=== PATIENT | male | born 1950 | race Caucasian/White ===

== ENCOUNTER 2018-11-14 05:29 | Observation (INO) | payer MEDICARE ==
[2018-11-08 12:39] LABS: BASOPHILS % 0.6 % (0.0-1.0); EOSINOPHILS # (AUTO) 0.1 (0.0-0.4); EOSINOPHILS % 0.9 % (0.0-6.0); HEMATOCRIT 46.4 % (38.2-49.6); HEMOGLOBIN 15.4 g/dL (14.0-18.0); LYMPHOCYTES # (AUTO) 1.3 (1.0-3.2); LYMPHOCYTES % 19.6 % (18.0-39.1); MEAN CORPUSCULAR HEMOGLOBIN 30.9 pg (28-32); MEAN CORPUSCULAR HGB CONC 33.2 g/dL (31-35); MONOCYTES # (AUTO) 0.5 (0.2-0.8); MONOCYTES % 7.8 % (4.4-11.3); NEUTROPHILS # (AUTO) 4.5 (2.1-6.9); NEUTROPHILS % 70.9 % (38.7-80.0); PLATELET COUNT 183 x10e3/uL (140-360); RED BLOOD COUNT 4.99 x10e6/uL (4.3-5.7); RED CELL DISTRIBUTION WIDTH 15.1 % (11.7-14.4)
--- NOTE | 2018-11-08 13:04 | Diagnostic Imaging Report ---
EXAMINATION: CHEST 2 VIEWS INDICATION: Pre-admit COMPARISON: None FINDINGS: TUBES and LINES: None. LUNGS: Lungs are moderately inflated. A nodular opacity projects over the left upper medial lung. No evidence of pneumonia or pulmonary edema. PLEURA: No pleural effusion or pneumothorax. HEART AND MEDIASTINUM: The cardiomediastinal silhouette is unremarkable. Atherosclerotic calcification of the aortic arch. BONES AND SOFT TISSUES: No acute osseous lesion. Soft tissues are unremarkable. UPPER ABDOMEN: No free air under the diaphragm. IMPRESSION: Nodular opacity projects over the left upper medial lung, which may reflect pulmonary nodule or overlying rib. A chest CT is suggested for further evaluation. Signed by: Dr. Thony Reynaga MD on 11/08/2018 1:00 PM
[~2018-11-14] VITALS: Ht 182.9 cm; Wt 92.8 kg
[2018-11-14] VITALS (7 sets, daily range): BP systolic 96–186; BP diastolic 54–97
[~2018-11-14 05:29] MED LIST: B-COMPLEX 100 I30 ML; CALCITRATE200 MG PO; CALCIUM CITRAT200 MG PO; CALCIUM PHOSPHATE PO; D3 DOTS2000 UNIT PO; FINASTERIDE5 MG PO; FLOMAX0.4 MG PO; GABAPENTIN PO; IRON PO; PROBIOTIC & AC1 EACH PO; SAW PALMETTO450 MG PEG; TAB A VITE1 EACH PO; TESTOSTERONE PRO INJ; VIT B12 INJ; ZINC50 MG PO
--- OUTSIDE RECORDS SUMMARY | 2018-11-14 05:33 | XMS REPORT | Continuity of Care Document ---
Author Author [facility] Interface Address Unknown Phone Unavailable Problems Problem Status Onset Date Classification Date Reported Comments Source Influenza-like symptoms 09/14/2018 Diagnosis 09/14/2018 [facility] Rhinitis 09/14/2018 Problem 09/14/2018 [facility] Benign Prostatic Hyperplasia 09/14/2018 Problem 09/14/2018 [facility] Influenza-like Symptoms 09/14/2018 Problem 09/14/2018 [facility] Acute bronchitis 04/14/2017 Diagnosis 04/14/2017 [facility] Acute upper respiratory infection 04/08/2017 Diagnosis 04/14/2017 [facility] Allergic rhinitis 04/08/2017 Diagnosis 04/14/2017 [facility] MORBID OBESITY Active 06/04/2012 [facility] Morbid obesity Active Problem 06/22/2012 [facility] ADMINISTRTVE ENCOUNT NOS Active [facility] Medications Medication Details Route Status Patient Instructions Ordering Provider Order Date Source Carafate 1 gm, 10 mL, Route: PO, Drug form: SUSP, Q6H, Start date: 06/19/12 8:47:00, Duration: 30 day, Stop date: 07/19/12 6:00:00 PO No Longer Active Du 06/19/2012 [facility] influenza virus vaccine, inactivated 0.5 ml, Route: IM, Drug Form: INJ, Start date: 06/18/12 15:03:00, Stop date: 06/18/12 15:03:00 IM No Longer Active SYSTEM 06/18/2012 [facility] Lovenox 40 mg, 0.4 mL, Route: SUB-Q, Drug form: INJ, [id number], Start date: 06/18/12 11:00:00, Duration: 30 day, Stop date: 07/17/12 23:00:00 SUB-Q No Longer Active Du 06/18/2012 [facility] acetaminophen-hydrocodone 15 mL, Route: PO, Drug Form: ELIX, Q4H, PRN Pain, Start date: 06/18/12 10:44:00, Duration: 30 day, Stop date: 07/18/12 10:43:00 PO No Longer Active Du 06/18/2012 [facility] Tylenol 650 mg, 20.3 mL, Route: PO, Drug form: LIQ, Q4H, PRN Pain Score 1-3, Start date: 06/18/12 10:43:00, Duration: 30 day, Stop date: 07/18/12 10:42:00 PO No Longer Active Du 06/18/2012 [facility] Pepcid 20 mg, 2 mL, Route: IVP, Drug form: INJ, Q12H, Start date: 06/17/12 21:00:00, Duration: 30 day, Stop date: 07/17/12 9:00:00 IVP No Longer Active Du 06/18/2012 [facility] Lactated Ringers Injection IV 1,000 mL 1,000 mL, Rate: 80 ml/hr, Infuse over: 12.5 hr, Route: IV, kg, Total Volume: 1,000, Start date: 06/17/12 18:31:00, Stop date: 07/17/12 18:30:00 IV No Longer Active Du 06/17/2012 [facility] Lopressor 5 mg, 5 mL, Route: IV, Drug form: INJ, Q6H, Start date: 06/17/12 18:00:00, Duration: 30 day, Stop date: 07/17/12 12:00:00 IV No Longer Active Du 06/17/2012 [facility] ketorolac 30 mg/mL injectable solution 30 mg, 1 mL, Route: IV, Drug form: INJ, Q6H, Start date: 06/17/12 18:00:00, Duration: 4 day, Stop date: 06/21/12 12:00:00 IV No Longer Active Du 06/17/2012 [facility] Sodium Chloride 0.9% IV 25 mL, Route: IV, Start date: 06/17/12 16:15:00, Duration: 30 day, Stop date: 07/17/12 16:14:00, PRN Line Flush IV No Longer Active Du 06/17/2012 [facility] BD Normal Saline Flush 10 mL, Route: IV, Drug Form: INJ, PRN, PRN Line Flush, Start date: 06/17/12 16:15:00, Duration: 30 day, Stop date: 07/17/12 16:14:00 IV No Longer Active Du 06/17/2012 [facility] Tylenol 650 mg, 1 supp, Route: MT, Drug form: SUPP, Q4H, PRN Temperature >100.5, Start date: 06/17/12 16:14:00, Duration: 30 day, Stop date: 07/17/12 16:13:00 MT No Longer Active Du 06/17/2012 [facility] Phenergan 25 mg, 1 mL, Route: IM, Drug form: INJ, Q4H, PRN Nausea, Start date: 06/17/12 16:14:00, Duration: 30 day, Stop date: 07/17/12 16:13:00 IM No Longer Active Du 06/17/2012 [facility] Vasotec 1.25 mg, 1 mL, Route: IV, Drug form: INJ, Q6H, PRN Hypertension, Start date: 06/17/12 16:14:00, Duration: 30 day, Stop date: 07/17/12 16:13:00 IV No Longer Active Du 06/17/2012 [facility] naloxone 0.2 mg, 0.5 mL, Route: IVP, Drug form: INJ, Q5Min, PRN Narcotic Reversal, Start date: 06/17/12 13:03:00, Duration: 30 day, Stop date: 07/17/12 13:02:00 IVP No Longer Active Du 06/17/2012 [facility] morphine Sulfate 30 mg IV, Start date: 06/17/12 13:03:00, Duration: 30, 30 ml, 133.636 IV No Longer Active Du 06/17/2012 [facility] hydromorphone 0.5 mg, 0.25 mL, Route: IVP, Drug form: INJ, Q5Min, Dosing Weight 133.636, kg, PRN Pain Score 4-6, Start date: 06/17/12 11:37:00, Duration: 5 doses or times, Stop date: Limited # of times IVP No Longer Active [place] 06/17/2012 [facility] morphine Sulfate 2 mg, 1 mL, Route: IVP, Drug form: INJ, Q5Min, Dosing Weight 133.636, kg, PRN Pain Score 4-6, Start date: 06/17/12 11:37:00, Duration: 8 doses or times, Stop date: Limited # of times IVP No Longer Active [facility] 06/17/2012 [facility] naloxone 0.04 mg, 0.1 mL, Route: IVP, Drug form: INJ, Q2MIN, Dosing Weight 133.636, kg, PRN Narcotic Reversal, Start date: 06/17/12 11:37:00, Duration: 8 doses or times, Stop date: Limited # of times IVP No Longer Active [facility] 06/17/2012 [facility] flumazenil 0.2 mg, 2 mL, Route: IVP, Drug form: INJ, PRN, Dosing Weight 133.636, kg, PRN Benzodiazepine Reversal, Initial dose, Start date: 06/17/12 11:37:00, Duration: 30 day, Stop date: 07/17/12 11:36:00 IVP No Longer Active [facility] 06/17/2012 [facility] Lactated Ringers Injection IV 1,000 mL 1,000 mL, Rate: 50 ml/hr, Infuse over: 20 hr, Route: IV, kg, Total Volume: 1,000, Start date: 06/17/12 11:37:00, Duration: 30 day, Stop date: 07/17/12 11:36:00 IV No Longer Active [facility] 06/17/2012 [facility] promethazine + Sodium Chloride 0.9% IV 50 mL 6.25 mg, 0.25 mL, Route: IVPB, ONCE, Dosing Weight 133.636, kg, PRN Nausea & Vomiting, Start date: 06/17/12 11:37:00 IVPB No Longer Active [facility] 06/17/2012 [facility] ondansetron 4 mg, 2 mL, Route: IVP, Drug form: INJ, ONCE, Dosing Weight 133.636, kg, PRN Nausea & Vomiting, Start date: 06/17/12 11:37:00 IVP No Longer Active [facility] 06/17/2012 [facility] Lactated Ringers Injection IV 1,000 mL 1,000 mL, Rate: 25 ml/hr, Infuse over: 40 hr, Route: IV, kg, Total Volume: 1,000, Start date: 06/17/12 10:22:00, Duration: 30 day, Stop date: 07/17/12 10:21:00 IV No Longer Active [facility] 06/17/2012 [facility] Invanz + Sodium Chloride 0.9% IV 100 mL 1 gm, Route: IVPB, ONCALL, Start date: 06/16/12 16:00:00, Duration: 1 doses or times IVPB No Longer Active Du 06/16/2012 [facility] testosterone dose unknown, IM, every 3-4 weeks, Substitution Allowedevery 3-4 weeks IM Active 06/07/2012 [facility] olson extract olson extract, one tab, PO, BID, Substitution Allowed PO No Longer Active 06/07/2012 [facility] male enhancement male enhancement, one tab, PO, BID, Substitution Allowed PO No Longer Active 06/07/2012 [facility] fish oil fish oil, 4 tabs (1,200 mg each), PO, BID, Substitution Allowed PO No Longer Active 06/07/2012 [facility] multivitamin one tab, PO, Daily, Substitution Allowed, Maintenance PO Active 06/07/2012 [facility] Exforge 5 mg-320 mg oral tablet 1 tab, PO, Daily, 30 tab, Substitution Allowed, Maintenance, TAB PO Active 06/07/2012 [facility] Fluticasone propionate 0.05 MG/ACTUAT Metered Dose Nasal [place] fluticasone 50 mcg/actuation nasal spray,suspension [place] 2 sprays every day by intranasal route as needed for 14 days. Active [facility] Methocarbamol 750 MG Oral Tablet methocarbamol 750 mg tablet Active [facility] montelukast 10 MG Oral Tablet montelukast 10 mg tablet Take 1 tablet every day by oral route as directed. Active [facility] Prednisone 20 MG Oral Tablet prednisone 20 mg tablet Take 1 tablet twice a day by oral route for 4 days. Active [facility] Tamsulosin hydrochloride 0.4 MG Oral Capsule tamsulosin 0.4 mg capsule Active [facility] Albuterol 0.83 MG/ML Inhalant Solution albuterol sulfate 2.5 mg/3 mL (0.083 %) solution for nebulization Give 1 inhalation every 20 minutes by nebulizer route as needed Active [facility] Brompheniramine Maleate 0.4 MG/ML / Dextromethorphan Hydrobromide 2 MG/ML / Pseudoephedrine Hydrochloride 6 MG/ML Oral Solution [Bromfed DM] Bromfed DM 2 mg-30 mg-10 mg/5 mL syrup Take 10 mL every 4 hours by oral route as needed. Active [facility] 200 ACTUAT Albuterol 0.09 MG/ACTUAT Metered Dose Inhaler [ProAir] ProAir HFA 90 mcg/actuation aerosol inhaler Inhale 2 puffs every 4-6 hours by inhalation route as needed. Active [facility] Dexamethasone phosphate 4 MG/ML Injectable Solution dexamethasone 4 mg/mL injection solution Take 1 mL by injection route. Active [facility] Finasteride 5 MG Oral Tablet finasteride 5 mg tablet Active [facility] levocetirizine dihydrochloride 5 MG Oral Tablet [Xyzal] Xyzal 5 mg tablet Take 1 tablet every day by oral route. Active [facility] Allergies, Adverse Reactions, Alerts Substance Category Reaction Severity Reaction type Status Date Reported Comments Source Sulfa (Sulfonamide Antibiotics) Hives Allergy to substance 04/08/2017 [facility] Food Milk/Milk Products drug allergy Allergy Active [facility] sulfa drugs drug allergy Allergy Active [facility] Immunizations Immunization Date Given Site Status Last Updated Comments Source influenza virus vaccine, inactivated 06/19/2012 Not Given [facility] Results Order Name Results Value Reference Range Date Interpretation Comments Source Influenza A negative 09/14/2018 [facility] Influenza B negative 09/14/2018 [facility] CHEMISTRY BUN 11 mg/dL 7 - 22 06/20/2012 Normal [facility] CHEMISTRY Glucose Lvl 75 mg/dL 70 - 99 06/20/2012 Normal 1Interpretive Data: Adult reference range values reflect the clinical guidelines of the [place] [employer]. [facility] CHEMISTRY AGAP 12.3 meq/L 10.0 - 20.0 06/20/2012 Normal [facility] CHEMISTRY Bili Total 0.8 mg/dL 0.2 - 1.3 06/20/2012 Normal [facility] CHEMISTRY AST 12 unit/L 0 - 37 06/20/2012 Normal [facility] CHEMISTRY Alk Phos 43 unit/L 39 - 136 06/20/2012 Normal [facility] CHEMISTRY ALT 19 unit/L 0 - 65 06/20/2012 Normal [facility] CHEMISTRY Albumin Lvl 2.8 g/dL 3.5 - 5.0 06/20/2012 LOW [facility] CHEMISTRY Total Protein 4.9 g/dL 6.4 - 8.4 06/20/2012 LOW [facility] CHEMISTRY Calcium Lvl 7.9 mg/dL 8.5 - 10.5 06/20/2012 LOW [facility] CHEMISTRY CO2 26 meq/L 24 - 32 06/20/2012 Normal [facility] CHEMISTRY Chloride Lvl 105 meq/L 95 - 109 06/20/2012 Normal [facility] CHEMISTRY Potassium Lvl 4.3 meq/L 3.5 - 5.1 06/20/2012 Normal [facility] CHEMISTRY Sodium Lvl 139 meq/L 135 - 145 06/20/2012 Normal [facility] CHEMISTRY Creatinine Lvl 1.2 mg/dL 0.5 - 1.4 06/20/2012 Normal [facility] CHEMISTRY A/G Ratio 1.3 0.7 - 1.6 06/20/2012 Normal [facility] CHEMISTRY B/C Ratio 9 6 - 25 06/20/2012 Normal [facility] CHEMISTRY Globulin 2.1 g/dL 2.0 - 4.0 06/20/2012 Normal [facility] HEMATOLOGY Monocytes 7.8 % 2.0 - 12.0 06/20/2012 Normal [facility] HEMATOLOGY Eosinophils 1.0 % 0.0 - 4.0 06/20/2012 Normal [facility] HEMATOLOGY Lymphocytes 23.5 % 20.0 - 40.0 06/20/2012 Normal [facility] HEMATOLOGY Macrocyte 1+ *ABN* (06/20/2012 04:15:00) None Seen 06/20/2012 ABN [facility] HEMATOLOGY Eosinophils # 0.1 K/CMM 0.0 - 0.5 06/20/2012 Normal [facility] HEMATOLOGY Monocytes # 0.6 K/CMM 0.0 - 0.8 06/20/2012 Normal [facility] HEMATOLOGY Lymphocytes # 2.0 K/CMM 1.0 - 5.5 06/20/2012 Normal [facility] HEMATOLOGY Segs-Bands # 5.6 K/CMM 1.5 - 8.1 06/20/2012 Normal [facility] HEMATOLOGY Basophils 0.5 % 0.0 - 1.0 06/20/2012 Normal [facility] HEMATOLOGY Segs 67.2 % 45.0 - 75.0 06/20/2012 Normal [facility] HEMATOLOGY RDW 13.3 % 11.5 - 14.5 06/20/2012 Normal [facility] HEMATOLOGY Platelet 152 K/CMM 133 - 450 06/20/2012 Normal [facility] HEMATOLOGY MPV 8.9 fL 7.4 - 10.4 06/20/2012 Normal [facility] HEMATOLOGY MCH 33.8 pg 27.0 - 31.0 06/20/[address] [facility] HEMATOLOGY MCHC 34.5 g/dL 32.0 - 36.0 06/20/2012 Normal [facility] HEMATOLOGY Hgb 10.6 g/dL 14.0 - 18.0 06/20/2012 [facility] HEMATOLOGY RBC 3.13 M/CMM 4.70 - 6.10 06/20/2012 [facility] HEMATOLOGY WBC 8.3 K/CMM 3.7 - 10.4 06/20/2012 [facility] HEMATOLOGY MCV 98.0 fL 80.0 - 94.0 06/20/[address] [facility] HEMATOLOGY Hct 30.7 % 42.0 - 54.0 06/20/2012 [facility] CHEMISTRY Globulin 1.9 g/dL 2.0 - 4.0 06/19/2012 [facility] CHEMISTRY A/G Ratio 1.4 0.7 - 1.6 06/19/2012 Normal [facility] CHEMISTRY AGAP 10.6 meq/L 10.0 - 20.0 06/19/2012 Normal [facility] CHEMISTRY B/C Ratio 17 6 - 25 06/19/2012 Normal [facility] CHEMISTRY Alk Phos 34 unit/L 39 - 136 06/19/2012 [facility] CHEMISTRY Bili Total 0.7 mg/dL 0.2 - 1.3 06/19/2012 Normal [facility] CHEMISTRY AST 12 unit/L 0 - 37 06/19/2012 Normal [facility] CHEMISTRY Albumin Lvl 2.6 g/dL 3.5 - 5.0 06/19/2012 [facility] CHEMISTRY ALT 18 unit/L 0 - 65 06/19/2012 Normal [facility] CHEMISTRY Calcium Lvl 7.7 mg/dL 8.5 - 10.5 06/19/2012 [facility] CHEMISTRY Total Protein 4.5 g/dL 6.4 - 8.4 06/19/2012 [facility] CHEMISTRY Chloride Lvl 104 meq/L 95 - 109 06/19/2012 Normal [facility] CHEMISTRY CO2 29 meq/L 24 - 32 06/19/2012 Normal [facility] CHEMISTRY Potassium Lvl 4.6 meq/L 3.5 - 5.1 06/19/2012 Normal [facility] CHEMISTRY Glucose Lvl 76 mg/dL 70 - 99 06/19/2012 Normal 2Interpretive Data: Adult reference range values reflect the clinical guidelines of the [place] [employer]. [facility] CHEMISTRY BUN 24 mg/dL 7 - 22 06/19/[address] [facility] CHEMISTRY Creatinine Lvl 1.4 mg/dL 0.5 - 1.4 06/19/2012 Normal [facility] CHEMISTRY Sodium Lvl 139 meq/L 135 - 145 06/19/2012 Normal [facility] HEMATOLOGY Hct 30.4 % 42.0 - 54.0 06/19/2012 [facility] HEMATOLOGY MCV 97.5 fL 80.0 - 94.0 06/19/[address] [facility] HEMATOLOGY RDW 13.3 % 11.5 - 14.5 06/19/2012 Normal [facility] HEMATOLOGY MCH 33.8 pg 27.0 - 31.0 06/19/[address] [facility] HEMATOLOGY Platelet 149 K/CMM 133 - 450 06/19/2012 Normal [facility] HEMATOLOGY MCHC 34.7 g/dL 32.0 - 36.0 06/19/2012 Normal [facility] HEMATOLOGY MPV 8.7 fL 7.4 - 10.4 06/19/2012 Normal [facility] HEMATOLOGY Hgb 10.6 g/dL 14.0 - 18.0 06/19/2012 [facility] HEMATOLOGY RBC 3.12 M/CMM 4.70 - 6.10 06/19/2012 [facility] HEMATOLOGY WBC 9.4 K/CMM 3.7 - 10.4 06/19/2012 Normal [facility] HEMATOLOGY Monocytes 6.9 % 2.0 - 12.0 06/19/2012 Normal [facility] HEMATOLOGY Eosinophils 0.7 % 0.0 - 4.0 06/19/2012 Normal [facility] HEMATOLOGY Basophils 0.3 % 0.0 - 1.0 06/19/2012 Normal [facility] HEMATOLOGY Segs-Bands # 6.8 K/CMM 1.5 - 8.1 06/19/2012 Normal [facility] HEMATOLOGY Lymphocytes # 1.8 K/CMM 1.0 - 5.5 06/19/2012 [facility] HEMATOLOGY Monocytes # 0.6 K/CMM 0.0 - 0.8 06/19/2012 Normal [facility] HEMATOLOGY Eosinophils # 0.1 K/CMM 0.0 - 0.5 06/19/2012 Normal [facility] HEMATOLOGY Macrocyte 1+ *ABN* (06/19/2012 03:17:00) None Seen 06/19/2012 ABN [facility] HEMATOLOGY Segs 72.5 % 45.0 - 75.0 06/19/2012 Normal [facility] HEMATOLOGY Lymphocytes 19.6 % 20.0 - 40.0 06/19/2012 LOW [facility] CHEMISTRY Alk Phos 48 unit/L 39 - 136 06/18/2012 Normal [facility] CHEMISTRY Bili Total 0.5 mg/dL 0.2 - 1.3 06/18/2012 Normal [facility] CHEMISTRY AST 23 unit/L 0 - 37 06/18/2012 Normal [facility] CHEMISTRY Albumin Lvl 3.0 g/dL 3.5 - 5.0 06/18/2012 LOW [facility] CHEMISTRY ALT 28 unit/L 0 - 65 06/18/2012 Normal [facility] CHEMISTRY CO2 26 meq/L 24 - 32 06/18/2012 Normal [facility] CHEMISTRY Calcium Lvl 8.1 mg/dL 8.5 - 10.5 06/18/2012 LOW [facility] CHEMISTRY Total Protein 5.6 g/dL 6.4 - 8.4 06/18/2012 LOW [facility] CHEMISTRY BUN 19 mg/dL 7 - 22 06/18/2012 Normal [facility] CHEMISTRY Creatinine Lvl 1.2 mg/dL 0.5 - 1.4 06/18/2012 Normal [facility] CHEMISTRY Sodium Lvl 140 meq/L 135 - 145 06/18/2012 Normal [facility] CHEMISTRY Potassium Lvl 5.0 meq/L 3.5 - 5.1 06/18/2012 Normal [facility] CHEMISTRY Chloride Lvl 101 meq/L 95 - 109 06/18/2012 Normal [facility] CHEMISTRY Glucose Lvl 88 mg/dL 70 - 99 06/18/2012 Normal 3Interpretive Data: Adult reference range values reflect the clinical guidelines of the [place] [employer]. [facility] CHEMISTRY AGAP 18.0 meq/L 10.0 - 20.0 06/18/2012 Normal [facility] CHEMISTRY B/C Ratio 16 6 - 25 06/18/2012 Normal [facility] CHEMISTRY Globulin 2.6 g/dL 2.0 - 4.0 06/18/2012 Normal [facility] CHEMISTRY A/G Ratio 1.2 0.7 - 1.6 06/18/2012 [facility] HEMATOLOGY Segs 87.4 % 45.0 - 75.0 06/18/[address] [facility] HEMATOLOGY Lymphocytes 4.7 % 20.0 - 40.0 06/18/2012 [facility] HEMATOLOGY Monocytes 7.9 % 2.0 - 12.0 06/18/2012 [facility] HEMATOLOGY Segs-Bands # 13.6 K/CMM 1.5 - 8.1 06/18/[address] [facility] HEMATOLOGY Eosinophils 0.0 % 0.0 - 4.0 06/18/2012 [facility] HEMATOLOGY Eosinophils # 0.0 K/CMM 0.0 - 0.5 06/18/2012 [facility] HEMATOLOGY Macrocyte 1+ *ABN* (06/18/2012 03:33:00) None Seen 06/18/2012 ABN [facility] HEMATOLOGY Lymphocytes # 0.7 K/CMM 1.0 - 5.5 06/18/2012 [facility] HEMATOLOGY Monocytes # 1.2 K/CMM 0.0 - 0.8 06/18/[address] [facility] HEMATOLOGY RBC Morph Normal (06/18/2012 03:33:00) 06/18/2012 [facility] HEMATOLOGY Plt Morph Normal (06/18/2012 03:33:00) 06/18/2012 [facility] HEMATOLOGY MPV 8.9 fL 7.4 - 10.4 06/18/2012 [facility] HEMATOLOGY WBC 15.6 K/CMM 3.7 - 10.4 06/18/[address] [facility] HEMATOLOGY RBC 4.35 M/CMM 4.70 - 6.10 06/18/2012 [facility] HEMATOLOGY MCHC 35.1 g/dL 32.0 - 36.0 06/18/2012 [facility] HEMATOLOGY Hct 42.5 % 42.0 - 54.0 06/18/2012 [facility] HEMATOLOGY MCV 97.7 fL 80.0 - 94.0 06/18/[address] [facility] HEMATOLOGY Platelet 179 K/CMM 133 - 450 06/18/2012 [facility] HEMATOLOGY RDW 12.9 % 11.5 - 14.5 06/18/2012 [facility] HEMATOLOGY Hgb 14.9 g/dL 14.0 - 18.0 06/18/2012 Normal [facility] HEMATOLOGY MCH 34.3 pg 27.0 - 31.0 06/18/2012 HI [facility] BLOOD BANK RESULTS ABO/Rh O NEG 06/17/2012 Unknown [facility] BLOOD BANK RESULTS Antibody Scrn Negative (06/17/2012 09:15:00) 06/17/2012 Normal [facility] CHEMISTRY Vitamin B1 126 nMol/L 87 - 280 06/17/2012 NA 4Result Comment: Test Performed at: [facility] [id number] [place] [id number] Marc Burrell MD, PhD [facility] CHEMISTRY Vitamin D2 25-OH null 06/07/2012 NA 6Result Comment: Test Performed at: [email or web address] [address] [id number] Marc Burrell MD, PhD [facility] CHEMISTRY Vitamin D3 25-OH 39 ng/mL 06/07/2012 NA [facility] CHEMISTRY Vitamin D, 25-OH, Total 39 ng/mL 30 - 100 06/07/2012 NA 5Result Comment: http://education.[employer]/faq/25-OHVit aminD 25-OHD3 indicates both endogenous production and supplementation. 25-OHD2 is an indicator of exogenous sources such as diet or supplementation. Therapy is based on measurement of Total 25-OHD, with levels <20 ng/mL indicative of Vitamin D deficiency, while levels between 20 ng/mL and 30 ng/mL suggest insufficiency. Optimal levels are >=30 ng/mL. [facility] HEMATOLOGY Basophils 0.3 % 0.0 - 1.0 06/07/2012 Normal [facility] HEMATOLOGY INR 0.87 0.85 - 1.17 06/07/2012 Normal 7Interpretive Data: RECOMMENDED RANGES FOR PROTIME INR: 2.0-3.0 for most medical and surgical thromboembolic states. 2.5-3.5 for artificial heart valves and recurrent embolism. INR SHOULD BE USED ONLY FOR PATIENTS ON STABLE ANTICOAGULANT THERAPY. [facility] HEMATOLOGY PT 12.1 s 12.0 - 14.7 06/07/2012 Normal [facility] HEMATOLOGY PTT 31.3 s 22.9 - 35.8 06/07/2012 Normal 8Interpretive Data: Heparin Therapeutic Range: 57 - 92 Seconds [facility] URINALYSIS UA Nitrite Negative (06/07/2012 09:12:00) Negative 06/07/2012 Normal [facility] URINALYSIS UA Ketones Negative mg/dL *NA* (06/07/2012 09:12:00) Negative 06/07/2012 NA [facility] URINALYSIS UA Bili Negative *NA* (06/07/2012 09:12:00) Negative 06/07/2012 NA [facility] URINALYSIS UA Protein Negative mg/dL (06/07/2012 09:12:00) Negative 06/07/2012 Normal [facility] URINALYSIS UA Turbidity Clear (06/07/2012 09:12:00) Clear 06/07/2012 Normal [facility] URINALYSIS UA Spec Grav 1.011 <=1.030 06/07/2012 Normal [facility] URINALYSIS UA Leuk Est Negative (06/07/2012 09:12:00) Negative 06/07/2012 Normal [facility] URINALYSIS UA Blood Negative (06/07/2012 09:12:00) Negative 06/07/2012 Normal [facility] URINALYSIS UA Glucose Negative mg/dL *NA* (06/07/2012 09:12:00) Negative 06/07/2012 NA [facility] URINALYSIS UA pH 6.5 5.0 - 8.0 06/07/2012 Normal [facility] URINALYSIS Micro? Not Indicated *NA* (06/07/2012 09:12:00) 06/07/2012 NA [facility] URINALYSIS UA Urobilinogen <=1.0 mg/dL
*NA*
(06/07/2012 09:12:00) <sup> </sup> 0.1 - 1.0 06/07/2012 NA [facility] URINALYSIS UA Color Yellow *NA* (06/07/2012 09:12:00) Yellow 06/07/2012 [facility] V[facility] Sign[facility] Vital Sign Value Date Comments Source Diastolic (mm Hg) 70 09/14/2018 [facility] Height 72 09/14/2018 [facility] Systolic (mm Hg) 106 09/14/2018 [facility] Weight 175 09/14/2018 [facility] Diastolic (mm Hg) 84 04/14/2017 [facility] Height 72 04/14/2017 [facility] Systolic (mm Hg) 136 04/14/2017 [facility] Weight 175 04/14/2017 [facility] Diastolic (mm Hg) 86 04/08/2017 [facility] Height 72 04/08/2017 [facility] Systolic (mm Hg) 128 04/08/2017 [facility] Weight 175 04/08/2017 [facility] Temperature Oral (F) 98.0 F 06/20/2012 [facility] Heart Rate 95 06/20/2012 [facility] Systolic (mm Hg) 135 06/20/2012 [facility] Respitory Rate 16 06/20/2012 [facility] Diastolic (mm Hg) 76 06/20/2012 [facility] Systolic (mm Hg) 133 06/20/2012 [facility] Diastolic (mm Hg) 75 06/20/2012 [facility] Temperature Oral (F) 97.8 F 06/20/2012 [facility] Respitory Rate 20 06/20/2012 [facility] Heart Rate 100 06/20/2012 [facility] Heart Rate 92 06/20/2012 [facility] Respitory Rate 18 06/20/2012 [facility] Systolic (mm Hg) 120 06/20/2012 [facility] Diastolic (mm Hg) 76 06/20/2012 [facility] Temperature Oral (F) 98.5 F 06/20/2012 [facility] Height 182.88 cm 06/07/2012 [facility] Weight 133.636 06/07/2012 [facility] Encounters Location Location Details Encounter Type Encounter Number Reason For Visit Attending Provider ADM Date DC Date Status Source [facility] Inpatient [id number] BEE KENNEDY 06/17/2012 06/20/2012 Active [facility] [place] - [facility] - [id number] Cat-C: [address] [place] [address], Ph. [phone] [id number] Sunny Eldridge 04/08/2017 [facility] [place] [facility] - [id number] Cat-C: [address] [place] [address], Ph. [id number] Sunny Alvarezen 04/08/2017 [facility] [place] [facility] - [id number] Kaye, BIOLOGICAL TECHNICAL OFFICER-C: [address] [place] [address], Ph. [id number] Isamar Kaye 04/14/2017 [facility] [place] [facility] - [id number] Kaye, BIOLOGICAL TECHNICAL OFFICER-C: [address] [place] [address], Ph. [id number] Isamar Kaye 09/14/2018 [facility] Procedures Procedure Code Date Perfomer Comments Source Tonsillectomy [facility] Gastric Bypass [facility]
--- OUTSIDE RECORDS SUMMARY | 2018-11-14 05:33 | XMS REPORT | Encounter Summary ---
Author Organization Unknown Address [address] [place] [address] Phone [phone] Reason for Visit Medical Complaint Instructions 1. Acute bronchitis bronchitis: care instructions ProAir HFA 90 mcg/actuation aerosol inhaler Bromfed DM 2 mg-30 mg-10 mg/5 mL syrup albuterol sulfate 2.5 mg/3 mL (0.083 %) solution for nebulization Discussion Note Pt is in NAD; Verbalizes understanding of all instructions with no questions at this time. Plan of Care Patient Instructions Start Bromfed DM for cough. Start ProAir (albuterol) Inhaler 2 puffs every 4-6 hrs as needed for shortness of breath/wheezing. Last dose of albuterol given at 8:22 AM Continue Montelukast, fluticasone and xyzal as directed. Take medications as prescribed and follow up with a PCP within 2-3 if symptoms worsen as discussed. In case of emergency call 911 or go to nearest ER. Reminders Provider Appointments None recorded. Lab None recorded. Referral None recorded. Procedures None recorded. Surgeries None recorded. Imaging None recorded. Medications Name Start Date albuterol sulfate 2.5 mg/3 mL (0.083 %) solution for nebulization Give 1 inhalation every 20 minutes by nebulizer route as needed Bromfed DM 2 mg-30 mg-10 mg/5 mL syrup Take 10 mL every 4 hours by oral route as needed. fluticasone 50 mcg/actuation nasal spray,suspension [place] 2 sprays every day by intranasal route for 14 days. methocarbamol 750 mg tablet montelukast 10 mg tablet Take 1 tablet every day by oral route as directed. ProAir HFA 90 mcg/actuation aerosol inhaler Inhale 2 puffs every 4-6 hours by inhalation route as needed. tamsulosin 0.4 mg capsule Medications Administered Name Date albuterol sulfate 2.5 mg/3 mL (0.083 %) solution for nebulization Give 1 inhalation every 20 minutes by nebulizer route as needed [id number] Vitals Height Weight BMI Blood Pressure 6 ft 175 lbs 23.7 kg/m2 136/84 mm[Hg] Lab Results None recorded. Allergies Code Code System Name Reaction Severity Onset Sulfa (Sulfonamide Antibiotics) Hives Problems None recorded. Procedures Date Name Performed by Tonsillectomy Information not available Gastric Bypass Information not available Vaccine List None recorded. Social History Smoking Status Never Smoker Past Encounters 04/14/2017 Acute Bronchitis RYLEY PayneP-C: [address] [place] [address], Ph. 04/08/2017 Acute Upper Respiratory Infection; Allergic Rhinitis Sunny EldridgeRYLEYP-C: [address] [place] [address], Ph. History of Present Illness Cough Reported By: Patient HPI: Location: chest. Quality: productive cough, congested. Duration: 7 days. Severity: moderate. Onset/Timing: gradual. Context: no sick contacts, no foreign travel, non-smoker, allergies. Modifying factors: OTC medication. Associated Symptoms: no shortness of breath, no wheezing, no sweats, no significant weight gain, no significant weight loss, no morning cough, no sore throat, no vomiting, no diarrhea, no rash, no nausea, no fever/chills, no muscle aches, no headache, yellow-green, thick sputum; post nasal drainage and chest congestion Review of Systems:ROS as noted in the HPI Review of Systems Basic Reported By: Patient Physical Exam Adult Basic, Adult Female Complete, Adult Male Complete Reported By: Patient Constitutional: General Appearance: healthy-appearing, well-nourished, well-developed. Level of Distress: NAD. Ambulation: ambulating normally Psychiatric: Mental Status: active and alert Eyes: Lids and Conjunctivae: non-injected, no discharge, no pallor Zkf-Zhjs-Vwwxz-Throat: Ears: no lesions on external ear, no outer ear tenderness, EACs clear, TMs clear. Hearing: no hearing loss. Nose: no lesions on external nose. Lips, Teeth, and Gums: no mouth or lip ulcers, no bleeding gums, normal dentition. Oropharynx: moist mucous membranes, no erythema, no exudates, tonsils not enlarged Neck: Lymph Nodes: no cervical LAD Lungs: Respiratory effort: no dyspnea, no tachypnea, no use of accessory muscles, no intercostal retractions. Auscultation: expiratory wheezing Cardiovascular: Heart Auscultation: RRR, no murmurs Neurologic: Gait and Station: normal gait, normal station
--- OUTSIDE RECORDS SUMMARY | 2018-11-14 05:33 | XMS REPORT | Encounter Summary ---
Author Organization Unknown Address [address] [place] [address] Phone [phone] Reason for Visit Medical Complaint Instructions 1. Acute upper respiratory infection 2. Allergic rhinitis montelukast 10 mg tablet fluticasone 50 mcg/actuation nasal spray,suspension prednisone 20 mg tablet Discussion Note: None recorded. Patient educational handouts: No information available. Plan of Care Patient Instructions take medication as directed. follow up pcp Reminders Provider Appointments None recorded. Lab None recorded. Referral None recorded. Procedures None recorded. Surgeries None recorded. Imaging None recorded. Medications Name Start Date fluticasone 50 mcg/actuation nasal spray,suspension [place] 2 sprays every day by intranasal route for 14 days. methocarbamol 750 mg tablet montelukast 10 mg tablet Take 1 tablet every day by oral route as directed. prednisone 20 mg tablet Take 1 tablet twice a day by oral route for 4 days. tamsulosin 0.4 mg capsule Medications Administered None recorded. Vitals Height Weight BMI Blood Pressure 6 ft 175 lbs 23.7 kg/m2 128/86 mm[Hg] Lab Results None recorded. Allergies Code Code System Name Reaction Severity Onset Sulfa (Sulfonamide Antibiotics) Hives Problems None recorded. Procedures Date Name Performed by Tonsillectomy Information not available Gastric Bypass Information not available Vaccine List None recorded. Social History Smoking Status Never Smoker Past Encounters 04/08/2017 Acute Upper Respiratory Infection; Allergic Rhinitis Sunny Eldridge, [facility]-C: [address] [place] [address], Ph. History of Present Illness Jwvcb-Wqfvrsvyno-Roperzd Reported By: Patient HPI: Location: head/sinuses. Quality: productive cough, nasal/sinus congestion. Duration: 2days. Severity: moderate. Onset/Timing: gradual. Context: no sick contacts, no foreign travel, non-smoker, allergies. Modifying factors: OTC medication. Associated Symptoms: no sputum production, no shortness of breath, no wheezing, no change in number of pillows needed to sleep at night, no sweats, no significant weight gain, no significant weight loss, no morning cough, no sore throat, no vomiting, no diarrhea, no rash, no nausea, no fever, no muscle aches, no headache Review of Systems:ROS as noted in the HPI Review of Systems Basic Reported By: Patient Physical Exam Adult Basic, Adult Male Complete Reported By: Patient Constitutional: General Appearance: healthy-appearing, well-nourished, well-developed. Level of Distress: NAD. Ambulation: ambulating normally Psychiatric: Mental Status: active and alert Eyes: Lids and Conjunctivae: non-injected, no discharge Znd-Zatm-Dbdwc-Throat: Ears: no lesions on external ear, no outer ear tenderness, EACs clear, TMs clear, TM mobility normal. Hearing: no hearing loss. Nose: no lesions on external nose, nasal discharge--rhinorrhea; congestion. Lips, Teeth, and Gums: no mouth or lip ulcers. Oropharynx: moist mucous membranes, no erythema, no exudates, tonsils not enlarged Neck: Neck: trachea midline. Lymph Nodes: no cervical LAD Lungs: Respiratory effort: no dyspnea, no tachypnea, no use of accessory muscles, no intercostal retractions. Auscultation: breath sounds normal, good air movement Cardiovascular: Heart Auscultation: RRR, no murmurs
--- OUTSIDE RECORDS SUMMARY | 2018-11-14 05:33 | XMS REPORT | Encounter Summary ---
Author Organization Unknown Address [address] [place] [address] Phone [phone] Care Team Providers Care [employer] Technician Name Role Phone Enrico Cabezas MD 3 [phone] Reason for Visit Medical Complaint Instructions 1. Rhinitis fluticasone 50 mcg/actuation nasal spray,suspension dexamethasone 4 mg/mL injection solution 2. Influenza-like symptoms rapid flu (A+B) Discussion Note Pt is in NAD; Verbalizes understanding of all instructions with no questions at this time. Patient educational handouts: No information available. Plan of Care Patient Instructions Take fluticasone as needed for congestion. [place] one spray in each nostril twice a day. Take a warm, steamy shower, blow your nose thereafter, and spray in each nostril. Tilt your head up for about 10 seconds and breath through your mouth. Do not sniff or snort the medication in or else the medication will go to your throat and not be absorbed appropriately. Take over the counter Xyzal for allergy like symptoms like runny nose, sneezing and watery eyes. Stop Zyrtec D. Take medications as prescribed and follow up with a PCP within 2-3 if symptoms worsen as discussed. Reminders Provider Appointments None recorded. Lab Rapid Flu (A+B) 09/14/2018 [facility] Referral None recorded. Procedures None recorded. Surgeries None recorded. Imaging None recorded. Medications Name Start Date dexamethasone 4 mg/mL injection solution Take 1 mL by injection route. finasteride 5 mg tablet fluticasone 50 mcg/actuation nasal spray,suspension [place] 2 sprays every day by intranasal route as needed for 14 days. methocarbamol 750 mg tablet tamsulosin 0.4 mg capsule Xyzal 5 mg tablet Take 1 tablet every day by oral route. Medications Administered Name Date dexamethasone 4 mg/mL injection solution Take 1 mL by injection route. [id number]:02:03 Vitals Height Weight BMI Blood Pressure 6 ft 175 lbs 23.7 kg/m2 106/70 mm[Hg] Lab Results Date Name Specimen Result Interpretation Description Value Range Status Address Rapid Flu (A+B) Influenza a negative [facility]: [facility] Influenza B negative [facility]: [facility] Allergies Code Code System Name Reaction Severity Status Onset Sulfa (Sulfonamide Antibiotics) Hives Active Problems Name Status Onset Date Source Rhinitis Active 09/14/2018 Benign Prostatic Hyperplasia Active 09/14/2018 Influenza-like Symptoms Active 09/14/2018 Procedures Date Name Performed by Tonsillectomy Information not available Gastric Bypass Information not available Vaccine List None recorded. Social History Smoking Status Never Smoker Past Encounters 09/14/2018 Rhinitis; Influenza-like Symptoms Isamar Kaye, [facility]-C: [address] [place] [address], Ph. History of Present Illness Zmwek-Meftbguqui-Gpwrwrk Reported By: Patient HPI: Location: head/sinuses. Quality: nasal/sinus congestion. Duration: 1days. Severity: moderate. Onset/Timing: gradual. Context: no sick [...] nausea, no fever, no muscle aches, no headache; nasal congestion, rhinorrhea and post nasal drip Review of Systems:ROS as noted in the HPI Review of Systems Basic Reported By: Patient Physical Exam Adult Basic, Adult Male Complete Reported By: Patient Constitutional: General Appearance: healthy-appearing, well-nourished, well-developed. Level of Distress: NAD. Ambulation: ambulating normally Psychiatric: Mental Status: active and alert. Orientation: to time, to place, to person Eyes: Lids and Conjunctivae: non-injected, no discharge, no pallor. Corneas: grossly intact. Lens: clear Wyj-Czbb-Hhrnh-Throat: Ears: no lesions on external ear, no outer ear tenderness, EACs clear, TMs clear. Hearing: no hearing loss. Nose: no lesions on external nose, nares patent, no septal deviation, nasal passages clear, no sinus tenderness, nasal discharge--rhinorrhea, post nasal drip; B/L NTs pale and edematous. Lips, Teeth, and Gums: no mouth or lip ulcers, no bleeding gums, normal dentition. Oropharynx: moist mucous membranes, no erythema, no exudates, tonsils absent Neck: Neck: supple. Lymph Nodes: no cervical LAD Lungs: Respiratory effort: no dyspnea, no tachypnea, no use of accessory muscles, no intercostal retractions. Auscultation: breath sounds normal, good air movement Cardiovascular: Heart Auscultation: RRR, no murmurs Neurologic: Gait and Station: normal gait, normal station. Cranial Nerves: grossly intact
--- OUTSIDE RECORDS SUMMARY | 2018-11-14 05:33 | XMS REPORT ---
Author Author [facility] Address Unknown Phone Unavailable Care Team Providers Care [employer] Professor Name Role Phone Rosalinda RUIZ Unavailable Unavailable Problems This patient has no known problems. Allergies, Adverse Reactions, Alerts This patient has no known allergies or adverse reactions. Medications This patient has no known medications. Results Test Description Test Time Test Comments Text Results Atomic Results Result Comments CHEST 2 VIEWS 2018-11-08 12:58:00 [place] [address] Patient Name: MINH ART MR #: [id number] : 1950 Age/Sex: 68/M Req #: [id number] Adm Physician: Ordered by: KIMBERLY RUIZ MD Report #: [id number] Location: OR Room/Bed: Procedure: [id number] DX/CHEST 2 VIEWS Exam Date: 11/08/18 Exam Time: 1145 REPORT STATUS: Signed EXAMINATION: CHEST 2 VIEWS INDICATION: Pre-admit COMPARISON: None FINDINGS: TUBES and LINES: None. LUNGS: Lungs are moderately inflated. A nodular opacity projects over the left upper medial lung. No evidence of pneumonia or pulmonary edema. PLEURA: No pleural effusion or pneumothorax. HEART AND MEDIASTINUM: The cardiomediastinal silhouette is unremarkable. Atherosclerotic calcification of the aortic arch. BONES AND SOFT TISSUES: No acute osseous lesion. Soft tissues are unremarkable. UPPER ABDOMEN: No free air under the diaphragm. IMPRESSION: Nodular opacity projects over the left upper medial lung, which may reflect pulmonary nodule or overlying rib. A chest CT is suggested for further evaluation. Signed by: Dr. Jerry Moreno MD on 11/08/2018 1:00 PM Dictated By: JERRY MORENO MD 1300 Transcribed By: SABRINA on 11/08/18 1300 COPY TO: KIMBERLY RUIZ MD
--- OUTSIDE RECORDS SUMMARY | 2018-11-14 05:33 | XMS REPORT | CCD ---
Author Author Auto Generated Organization [facility] Address Unknown Phone Unavailable Care Team Providers Care Freight Manager Name Role Phone Yrn Sandy RP Allergies, Adverse Reactions, Alerts Substance Reaction Status Food Milk/Milk Products Active sulfa drugs Active Problem List Condition Effective Dates Status Morbid obesity Active Medications Medication Instructions Start Date End Date Status multivitamin one tab, PO, Daily, Substitution 06/07/2012 Ordered Allowed, Maintenance Exforge 5 mg-320 mg 1 tab, PO, Daily, 30 tab, 06/07/2012 Ordered oral tablet Substitution Allowed, Maintenance, TAB Lactated Ringers 1,000 mL, Rate: 25 ml/hr, Infuse 06/17/2012 06/17/2012 Discontinued Injection IV 1,000 over: 40 hr, Route: IV, kg, Total mL Volume: 1,000, Start date: 06/17/12 10:22:00, Duration: 30 day, Stop date: 07/17/12 10:21:00 influenza virus 0.5 ml, Route: IM, Drug Form: INJ, 06/18/2012 06/19/2012 Completed vaccine, inactivated Start date: 06/18/12 15:03:00, Stop date: 06/18/12 15:03:00 Invanz + Sodium 1 gm, Route: IVPB, ONCALL, Start 06/16/2012 06/17/2012 Completed Chloride 0.9% IV 100 date: 06/16/12 16:00:00, Duration: mL 1 doses or times influenza virus 0.5 ml, Route: IM, Drug Form: INJ, 06/18/2012 06/18/2012 Completed vaccine, inactivated Daily, Start date: 06/18/12 15:03:00, Duration: 1 doses or times, Stop date: 06/18/12 15:03:00 Lactated Ringers 1,000 mL, Rate: 80 ml/hr, Infuse 06/17/2012 06/19/2012 Discontinued Injection IV 1,000 over: 12.5 hr, Route: IV, kg, Total mL Volume: 1,000, Start date: 06/17/12 18:31:00, Stop date: 07/17/12 18:30:00 Carafate 1 gm, 10 mL, Route: PO, Drug form: 06/19/2012 06/20/2012 Discontinued SUSP, Q6H, Start date: 06/19/12 8:47:00, Duration: 30 day, Stop date: 07/19/12 6:00:00 naloxone 0.2 mg, 0.5 mL, Route: IVP, Drug 06/17/2012 06/18/2012 Discontinued form: INJ, Q5Min, PRN Narcotic Reversal, Start date: 06/17/12 13:03:00, Duration: 30 day, Stop date: 07/17/12 13:02:00 morphine Sulfate 30 IV, Start date: 06/17/12 13:03:00, 06/17/2012 06/18/2012 Discontinued mg Duration: 30, 30 ml, 133.636 acetaminophen-hydroc 15 mL, Route: PO, Drug Form: ELIX, 06/18/2012 06/20/2012 Discontinued odone Q4H, PRN Pain, Start date: 06/18/12 10:44:00, Duration: 30 day, Stop date: 07/18/12 10:43:00 Tylenol 650 mg, 20.3 mL, Route: PO, Drug 06/18/2012 06/20/2012 Discontinued form: LIQ, Q4H, PRN Pain Score 1-3, Start date: 06/18/12 10:43:00, Duration: 30 day, Stop date: 07/18/12 10:42:00 Lovenox 40 mg, 0.4 mL, Route: SUB-Q, Drug 06/18/2012 06/18/2012 Discontinued form: INJ, [id number], Start date: 06/18/12 11:00:00, Duration: 30 day, Stop date: 07/17/12 23:00:00 Sodium Chloride 0.9% 25 mL, Route: IV, Start date: 06/17/2012 06/20/2012 Discontinued IV 06/17/12 16:15:00, Duration: 30 day, Stop date: 07/17/12 16:14:00, PRN Line Flush BD Normal Saline 10 mL, Route: IV, Drug Form: INJ, 06/17/2012 06/20/2012 Discontinued Flush PRN, PRN Line Flush, Start date: 06/17/12 16:15:00, Duration: 30 day, Stop date: 07/17/12 16:14:00 hydromorphone 0.5 mg, 0.25 mL, Route: IVP, Drug 06/17/2012 06/17/2012 Discontinued form: INJ, Q5Min, Dosing Weight 133.636, kg, PRN Pain Score 4-6, Start date: 06/17/12 11:37:00, Duration: 5 doses or times, Stop date: Limited # of times morphine Sulfate 2 mg, 1 mL, Route: IVP, Drug form: 06/17/2012 06/17/2012 Discontinued INJ, Q5Min, Dosing Weight 133.636, kg, PRN Pain Score 4-6, Start date: 06/17/12 11:37:00, Duration: 8 doses or times, Stop date: Limited # of times naloxone 0.04 mg, 0.1 mL, Route: IVP, Drug 06/17/2012 06/17/2012 Discontinued form: INJ, Q2MIN, Dosing Weight 133.636, kg, PRN Narcotic Reversal, Start date: 06/17/12 11:37:00, Duration: 8 doses or times, Stop date: Limited # of times flumazenil 0.2 mg, 2 mL, Route: IVP, Drug 06/17/2012 06/17/2012 Discontinued form: INJ, PRN, Dosing Weight 133.636, kg, PRN Benzodiazepine Reversal, Initial dose, Start date: 06/17/12 11:37:00, Duration: 30 day, Stop date: 07/17/12 11:36:00 Lactated Ringers 1,000 mL, Rate: 50 ml/hr, Infuse 06/17/2012 06/17/2012 Discontinued Injection IV 1,000 over: 20 hr, Route: IV, kg, Total mL Volume: 1,000, Start date: 06/17/12 11:37:00, Duration: 30 day, Stop date: 07/17/12 11:36:00 promethazine + 6.25 mg, 0.25 mL, Route: IVPB, 06/17/2012 06/17/2012 Discontinued Sodium Chloride 0.9% ONCE, Dosing Weight 133.636, kg, IV 50 mL PRN Nausea & Vomiting, Start date: 06/17/12 11:37:00 ondansetron 4 mg, 2 mL, Route: IVP, Drug form: 06/17/2012 06/17/2012 Discontinued INJ, ONCE, Dosing Weight 133.636, kg, PRN Nausea & Vomiting, Start date: 06/17/12 11:37:00 Lopressor 5 mg, 5 mL, Route: IV, Drug form: 06/17/2012 06/19/2012 Discontinued INJ, Q6H, Start date: 06/17/12 18:00:00, Duration: 30 day, Stop date: 07/17/12 12:00:00 testosterone dose unknown, IM, every 3-4 weeks, 06/07/2012 Ordered Substitution Allowed every 3-4 weeks ketorolac 30 mg/mL 30 mg, 1 mL, Route: IV, Drug form: 06/17/2012 06/18/2012 Discontinued injectable solution INJ, Q6H, Start date: 06/17/12 18:00:00, Duration: 4 day, Stop date: 06/21/12 12:00:00 Tylenol 650 mg, 1 supp, Route: OH, Drug 06/17/2012 06/20/2012 Discontinued form: SUPP, Q4H, PRN Temperature >100.5, Start date: 06/17/12 16:14:00, Duration: 30 day, Stop date: 07/17/12 16:13:00 Phenergan 25 mg, 1 mL, Route: IM, Drug form: 06/17/2012 06/20/2012 Discontinued INJ, Q4H, PRN Nausea, Start date: 06/17/12 16:14:00, Duration: 30 day, Stop date: 07/17/12 16:13:00 Vasotec 1.25 mg, 1 mL, Route: IV, Drug 06/17/2012 06/19/2012 Discontinued form: INJ, Q6H, PRN Hypertension, Start date: 06/17/12 16:14:00, Duration: 30 day, Stop date: 07/17/12 16:13:00 Pepcid 20 mg, 2 mL, Route: IVP, Drug form: 06/17/2012 06/19/2012 Discontinued INJ, Q12H, Start date: 06/17/12 21:00:00, Duration: 30 day, Stop date: 07/17/12 9:00:00 olson extract olson extract, one tab, PO, BID, 06/07/2012 06/20/2012 Discontinued Substitution Allowed male enhancement male enhancement, one tab, PO, BID, 06/07/2012 06/20/2012 Discontinued Substitution Allowed fish oil fish oil, 4 tabs (1,200 mg each), 06/07/2012 06/20/2012 Discontinued PO, BID, Substitution Allowed Immunizations Vaccine Date Status influenza virus vaccine, inactivated 06/19/2012 Not Done Vital Signs Most recent to oldest [Reference Range]: 1 2 3 Height 182.88 cm (06/07/2012 08:45:00) Temperature Oral [96.4-99.1 DegF] 98.0 DegF (06/20/2012 12:00:00) 97.8 DegF (06/20/2012 08:00:00) 98.5 DegF (06/20/2012 04:46:00) Systolic Blood Pressure [90-140 mmHg] 135 mmHg (06/20/2012 12:00:00) 133 mmHg (06/20/2012 08:00:00) 120 mmHg (06/20/2012 04:46:00) Diastolic Blood Pressure [60-90 mmHg] 76 mmHg (06/20/2012 12:00:00) 75 mmHg (06/20/2012 08:00:00) 76 mmHg (06/20/2012 04:46:00) Respiratory Rate [14-20 BRMIN] 16 BRMIN (06/20/2012 12:00:00) 20 BRMIN (06/20/2012 08:00:00) 18 BRMIN (06/20/2012 04:46:00) Peripheral Pulse Rate [60-100 bpm] 95 bpm (06/20/2012 12:00:00) 100 bpm (06/20/2012 08:00:00) 92 bpm (06/20/2012 04:46:00) Weight 133.636 kg (06/07/2012 08:45:00) Results URINALYSIS Most recent to oldest [Reference Range]: 1 2 3 UA Turbidity [Clear] Clear (06/07/2012 09:12:00) UA Color [Yellow] Yellow *NA* (06/07/2012 09:12:00) UA pH [5.0-8.0] 6.5 (06/07/2012 09:12:00) UA Spec Grav [<=1.030] 1.011 (06/07/2012 09:12:00) UA Glucose [Negative mg/dL] Negative mg/dL *NA* (06/07/2012 09:12:00) UA Blood [Negative] Negative (06/07/2012 09:12:00) UA Ketones [Negative mg/dL] Negative mg/dL *NA* (06/07/2012 09:12:00) UA Protein [Negative mg/dL] Negative mg/dL (06/07/2012 09:12:00) UA Urobilinogen [0.1-1.0 mg/dL] <=1.0 mg/dL *NA* (06/07/2012 09:12:00) UA Bili [Negative] Negative *NA* (06/07/2012 09:12:00) UA Leuk Est [Negative] Negative (06/07/2012 09:12:00) UA Nitrite [Negative] Negative (06/07/2012 09:12:00) Micro? Not Indicated *NA* (06/07/2012 09:12:00) BLOOD BANK RESULTS Most recent to oldest [Reference Range]: 1 2 3 ABO/Rh O NEG *Unknown* (06/17/2012 09:15:00) Antibody Scrn Negative (06/17/2012 09:15:00) CHEMISTRY Most recent to oldest [Reference Range]: 1 2 3 Sodium Lvl [135-145 mEq/L] 139 mEq/L (06/20/2012 04:15:00) 139 mEq/L (06/19/2012 03:17:00) 140 mEq/L (06/18/2012 03:33:00) Potassium Lvl [3.5-5.1 mEq/L] 4.3 mEq/L (06/20/2012 04:15:00) 4.6 mEq/L (06/19/2012 03:17:00) 5.0 mEq/L (06/18/2012 03:33:00) Chloride Lvl [95-109 mEq/L] 105 mEq/L (06/20/2012 04:15:00) 104 mEq/L (06/19/2012 03:17:00) 101 mEq/L (06/18/2012 03:33:00) CO2 [24-32 mEq/L] 26 mEq/L (06/20/2012 04:15:00) 29 mEq/L (06/19/2012 03:17:00) 26 mEq/L (06/18/2012 03:33:00) AGAP [10.0-20.0 mEq/L] 12.3 mEq/L (06/20/2012 04:15:00) 10.6 mEq/L (06/19/2012 03:17:00) 18.0 mEq/L (06/18/2012 03:33:00) Creatinine Lvl [0.5-1.4 mg/dL] 1.2 mg/dL (06/20/2012 04:15:00) 1.4 mg/dL (06/19/2012 03:17:00) 1.2 mg/dL (06/18/2012 03:33:00) BUN [7-22 mg/dL] 11 mg/dL (06/20/2012 04:15:00) 24 mg/dL *HI* (06/19/2012 03:17:00) 19 mg/dL (06/18/2012 03:33:00) B/C Ratio [6-25] 9 (06/20/2012 04:15:00) 17 (06/19/2012 03:17:00) 16 (06/18/2012 03:33:00) Glucose Lvl [70-99 mg/dL] 75 mg/dL 1 (06/20/2012 04:15:00) 76 mg/dL 2 (06/19/2012 03:17:00) 88 mg/dL 3 (06/18/2012 03:33:00) Total Protein [6.4-8.4 g/dL] 4.9 g/dL *LOW* (06/20/2012 04:15:00) 4.5 g/dL *LOW* (06/19/2012 03:17:00) 5.6 g/dL *LOW* (06/18/2012 03:33:00) Albumin Lvl [3.5-5.0 g/dL] 2.8 g/dL *LOW* (06/20/2012 04:15:00) 2.6 g/dL *LOW* (06/19/2012 03:17:00) 3.0 g/dL *LOW* (06/18/2012 03:33:00) Globulin [2.0-4.0 g/dL] 2.1 g/dL (06/20/2012 04:15:00) 1.9 g/dL *LOW* (06/19/2012 03:17:00) 2.6 g/dL (06/18/2012 03:33:00) A/G Ratio [0.7-1.6] 1.3 (06/20/2012 04:15:00) 1.4 (06/19/2012 03:17:00) 1.2 (06/18/2012 03:33:00) Calcium Lvl [8.5-10.5 mg/dL] 7.9 mg/dL *LOW* (06/20/2012 04:15:00) 7.7 mg/dL *LOW* (06/19/2012 03:17:00) 8.1 mg/dL *LOW* (06/18/2012 03:33:00) ALT [0-65 unit/L] 19 unit/L (06/20/2012 04:15:00) 18 unit/L (06/19/2012 03:17:00) 28 unit/L (06/18/2012 03:33:00) AST [0-37 unit/L] 12 unit/L (06/20/2012 04:15:00) 12 unit/L (06/19/2012 03:17:00) 23 unit/L (06/18/2012 03:33:00) Alk Phos [39-136 unit/L] 43 unit/L (06/20/2012 04:15:00) 34 unit/L *LOW* (06/19/2012 03:17:00) 48 unit/L (06/18/2012 03:33:00) Bili Total [0.2-1.3 mg/dL] 0.8 mg/dL (06/20/2012 04:15:00) 0.7 mg/dL (06/19/2012 03:17:00) 0.5 mg/dL (06/18/2012 03:33:00) Vitamin B1 [87-280 nMol/L] 126 nMol/L 4 *NA* (06/17/2012 09:15:00) Vitamin D, 25-OH, Total [30-100 ng/mL] 39 ng/mL 5 *NA* (06/07/2012 09:12:00) Vitamin D2 25-OH <4 ng/mL 6 *NA* (06/07/2012 09:12:00) Vitamin D3 25-OH 39 ng/mL *NA* (06/07/2012 09:12:00) 1Interpretive Data: Adult reference range values reflect the clinical guidelines of the [place] [employer]. 2Interpretive Data: Adult reference range values reflect the clinical guidelines of the [place] [employer]. 3Interpretive Data: Adult reference range values reflect the clinical guidelines of the [place] [employer]. 4Result Comment: Test Performed at: [facility] [address] [place] [id number] Marc Burrell MD, PhD 5Result Comment: http://education.[employer]age Systems/faq/25-OHVit aminD 25-OHD3 indicates both endogenous production and supplementation. 25-OHD2 is an indicator of exogenous sources such as diet or supplementation. Therapy is based on measurement of Total 25-OHD, with levels <20 ng/mL indicative of Vitamin D deficiency, while levels between 20 ng/mL and 30 ng/mL suggest insufficiency. Optimal levels are >=30 ng/mL. 6Result Comment: Test Performed at: [facility] [address] [place] [id number] Marc Burrell MD, PhD HEMATOLOGY Most recent to oldest [Reference Range]: 1 2 3 WBC [3.7-10.4 K/CMM] 8.3 K/CMM (06/20/2012 04:15:00) 9.4 K/CMM (06/19/2012 03:17:00) 15.6 K/CMM *HI* (06/18/2012 03:33:00) RBC [4.70-6.10 M/CMM] 3.13 M/CMM *LOW* (06/20/2012 04:15:00) 3.12 M/CMM *LOW* (06/19/2012 03:17:00) 4.35 M/CMM *LOW* (06/18/2012 03:33:00) Hgb [14.0-18.0 g/dL] 10.6 g/dL *LOW* (06/20/2012 04:15:00) 10.6 g/dL *LOW* (06/19/2012 03:17:00) 14.9 g/dL (06/18/2012 03:33:00) Hct [42.0-54.0 %] 30.7 % *LOW* (06/20/2012 04:15:00) 30.4 % *LOW* (06/19/2012 03:17:00) 42.5 % (06/18/2012 03:33:00) MCV [80.0-94.0 fL] 98.0 fL *HI* (06/20/2012 04:15:00) 97.5 fL *HI* (06/19/2012 03:17:00) 97.7 fL *HI* (06/18/2012 03:33:00) MCH [27.0-31.0 pg] 33.8 pg *HI* (06/20/2012 04:15:00) 33.8 pg *HI* (06/19/2012 03:17:00) 34.3 pg *HI* (06/18/2012 03:33:00) MCHC [32.0-36.0 g/dL] 34.5 g/dL (06/20/2012 04:15:00) 34.7 g/dL (06/19/2012 03:17:00) 35.1 g/dL (06/18/2012 03:33:00) RDW [11.5-14.5 %] 13.3 % (06/20/2012 04:15:00) 13.3 % (06/19/2012 03:17:00) 12.9 % (06/18/2012 03:33:00) Platelet [133-450 K/CMM] 152 K/CMM (06/20/2012 04:15:00) 149 K/CMM (06/19/2012 03:17:00) 179 K/CMM (06/18/2012 03:33:00) MPV [7.4-10.4 fL] 8.9 fL (06/20/2012 04:15:00) 8.7 fL (06/19/2012 03:17:00) 8.9 fL (06/18/2012 03:33:00) Segs [45.0-75.0 %] 67.2 % (06/20/2012 04:15:00) 72.5 % (06/19/2012 03:17:00) 87.4 % *HI* (06/18/2012 03:33:00) Lymphocytes [20.0-40.0 %] 23.5 % (06/20/2012 04:15:00) 19.6 % *LOW* (06/19/2012 03:17:00) 4.7 % *LOW* (06/18/2012 03:33:00) Monocytes [2.0-12.0 %] 7.8 % (06/20/2012 04:15:00) 6.9 % (06/19/2012 03:17:00) 7.9 % (06/18/2012 03:33:00) Eosinophils [0.0-4.0 %] 1.0 % (06/20/2012 04:15:00) 0.7 % (06/19/2012 03:17:00) 0.0 % (06/18/2012 03:33:00) Basophils [0.0-1.0 %] 0.5 % (06/20/2012 04:15:00) 0.3 % (06/19/2012 03:17:00) 0.3 % (06/07/2012 09:12:00) Segs-Bands # [1.5-8.1 K/CMM] 5.6 K/CMM (06/20/2012 04:15:00) 6.8 K/CMM (06/19/2012 03:17:00) 13.6 K/CMM *HI* (06/18/2012 03:33:00) Lymphocytes # [1.0-5.5 K/CMM] 2.0 K/CMM (06/20/2012 04:15:00) 1.8 K/CMM (06/19/2012 03:17:00) 0.7 K/CMM *LOW* (06/18/2012 03:33:00) Monocytes # [0.0-0.8 K/CMM] 0.6 K/CMM (06/20/2012 04:15:00) 0.6 K/CMM (06/19/2012 03:17:00) 1.2 K/CMM *HI* (06/18/2012 03:33:00) Eosinophils # [0.0-0.5 K/CMM] 0.1 K/CMM (06/20/2012 04:15:00) 0.1 K/CMM (06/19/2012 03:17:00) 0.0 K/CMM (06/18/2012 03:33:00) RBC Morph Normal (06/18/2012 03:33:00) Macrocyte [None Seen] 1+ *ABN* (06/20/2012 04:15:00) 1+ *ABN* (06/19/2012 03:17:00) 1+ *ABN* (06/18/2012 03:33:00) Plt Morph Normal (06/18/2012 03:33:00) PT [12.0-14.7 seconds] 12.1 seconds (06/07/2012 09:12:00) INR [0.85-1.17] 0.87 7 (06/07/2012 09:12:00) PTT [22.9-35.8 seconds] 31.3 seconds 8 (06/07/2012 09:12:00) 7Interpretive Data: RECOMMENDED RANGES FOR PROTIME INR: 2.0-3.0 for most medical and surgical thromboembolic states. 2.5-3.5 for artificial heart valves and recurrent embolism. INR SHOULD BE USED ONLY FOR PATIENTS ON STABLE ANTICOAGULANT THERAPY. 8Interpretive Data: Heparin Therapeutic Range: 57 - 92 Seconds
[2018-11-14] MEDS ORDERED: CEFTRIAXONE SOD 1 GM/NS 50 ML 50 ML IV ONE (05:49)
[2018-11-14 07:02] LABS: ANION GAP 14.4 mmol/L (8-16); BLOOD UREA NITROGEN 14 mg/dL (7-26); BUN/CREATININE RATIO 14 (6-25); CALCIUM 8.9 mg/dL (8.4-10.2); CARBON DIOXIDE 23 mmol/L (22-29); CHLORIDE 107 mmol/L (98-107); EST GLOMERULAR FILTRATION RATE > 60 ML/MIN (60-); GLUCOSE 81 mg/dL (74-118); POTASSIUM 4.4 mmol/L (3.5-5.1); SODIUM 140 mmol/L (136-145)
--- NOTE | 2018-11-14 07:15 | NUR ---
SPIRITUAL CARE - Pre-Surgery Assessment: Pt in bed. Pt's at bedside. Pt reported supportive attention from family and friends. Intervention: I provided pastoral presence, hospitality, and sympathetic listening. I acquainted pt with availability of emblem maker while hospitalized. Outcome: Pt expressed appreciation for visit. No need for follow up indicated at this time. BENITO Arriolalain Spiritual Care Department O: [phone] Pager: [phone] ([phone] number calling from)
[2018-11-14] MEDS ORDERED: BELLADONNA/OPIUM 30 MG SUPP RC ONE (07:56)
--- NOTE | 2018-11-14 09:02 | Operative Report ---
DATE OF PROCEDURE: November 14, 2018 PREOPERATIVE DIAGNOSIS: Bladder outlet obstruction. POSTOPERATIVE DIAGNOSIS: Bladder outlet obstruction. OPERATIVE PROCEDURES PERFORMED 1. Cystoscopy. 2. Transurethral resection of prostate. ANESTHESIA: General anesthesia. ESTIMATED BLOOD LOSS: Minimal. INDICATIONS: Mr. Jens Medina is a 68-year-old gentleman with a long history of bladder outlet obstruction, which has failed conservative management. He now presents for definitive surgical management of this problem. PROCEDURE IN DETAIL: Patient was brought to the operating room and placed in the supine position. After administration of general anesthesia, was placed in the dorsal lithotomy position and prepped and draped in the usual sterile fashion. Cystourethroscopy was performed using a 21-Vietnamese cystoscope. The anterior and posterior urethra were noted normal. The prostate revealed moderate elevation of the median lobe with mild lateral lobar hyperplasia. The bladder was entered with mild difficulty. Upon entrance into the bladder, there were grade 2 trabeculations noted throughout. The ureteral orifices were in normal anatomical position and produced clear reflux. There were no mucosal lesions identified. The bladder was left full and cystoscope and sheath were removed. A 26-Vietnamese continuous flow resectoscope sheath was then placed. The ISORG resectoscope was used to perform the procedure. Beginning at the 1 o'clock position and proceeding in a clockwise fashion down to the 6 o'clock position, all the adenomatous tissue between the bladder neck and the vera were resected down to the level of the surgical capsule. There was no gross penetration or perforation of the capsule noted. A similar procedure was performed on the contralateral side in a counter clockwise fashion beginning at the 11 o'clock position and again ending in the 6 o'clock position. Any residual tissue at the roof and floor of the gland was resected down as well. Once adequate hemostasis was secured, the bladder was left full. The resectoscope and sheath were removed. The patient was noted to have a brisk urinary flow with Coude. A 24-Vietnamese, 3-way Coude catheter was then placed in a retrograde fashion, and balloon inflated with approximately 35 mL of sterile water. The urinary efflux was noted to be blood-tinged. The patient was started on continuous bladder irrigation and returned to a supine position. Anesthesia was reversed, and he was transferred to a bed and taken to the postanesthesia care unit in good condition. Of note, the needle and instrument count were correct at the conclusion of the case. JENELLE: 11/14/2018 08:19 Job#: [id number] JAYA DEJESUS
[2018-11-14] MEDS ORDERED: MORPHINE SULFATE INJ 4 MG/ML INJ 1ML ONE (09:37)
--- NOTE | 2018-11-14 10:00 | NUR ---
patient arrived on floor via stretcher, patient alert and oriented and in no distress. Call dumont within reach and bed in lowest position.
[2018-11-14] MEDS ORDERED: PNEUMOCOCCAL VACCINE POLYVALENT 23 MCG/0.5 ML VIAL IM SCH (10:37)
[2018-11-14] MEDS ORDERED: ACETAMINOPHEN/CODEINE 300MG - 30MG TAB PO PRN (12:15)
[2018-11-14] MEDS ORDERED: DEXTROSE 5%/0.45% SOD CHL 1,000 ML IV ONE (12:30)
[2018-11-14] MEDS ORDERED: SAW PALMETTO FRUIT PEG SCH (17:00)
[2018-11-14] MEDS: TAMSULOSIN HCL 0.4 MG CAP PO SCH (17:00)
[2018-11-14] MEDS: SAW PALMETTO FRUIT PO SCH (17:00)
[2018-11-14] MEDS: CIPROFLOXACIN 500 MG TAB PO SCH (17:00)
[2018-11-14 18:12] LABS: BASOPHILS % 0.1 % (0.0-1.0); HEMATOCRIT 39.6 % (38.2-49.6); HEMOGLOBIN 13.4 g/dL (14.0-18.0); LYMPHOCYTES # (AUTO) 0.6 (1.0-3.2); LYMPHOCYTES % 3.8 % (18.0-39.1); MEAN CORPUSCULAR HEMOGLOBIN 31.7 pg (28-32); MEAN CORPUSCULAR HGB CONC 33.8 g/dL (31-35); MEAN CORPUSCULAR VOLUME 93.6 fL (81-99); MONOCYTES # (AUTO) 0.6 (0.2-0.8); MONOCYTES % 3.8 % (4.4-11.3); NEUTROPHILS # (AUTO) 13.4 (2.1-6.9); NEUTROPHILS % 91.9 % (38.7-80.0); PLATELET COUNT 205 x10e3/uL (140-360); RED BLOOD COUNT 4.23 x10e6/uL (4.3-5.7); RED CELL DISTRIBUTION WIDTH 14.7 % (11.7-14.4)
[2018-11-14] MEDS ORDERED: FENTANYL CITRATE/PF 100MCG/2 ML INJ ONE (19:00)
[2018-11-14] MEDS ORDERED: MIDAZOLAM HCL 2 MG/2 ML VIAL ONE (19:00)
--- NOTE | 2018-11-14 19:05 | NUR ---
rounded with restaurant shift supervisor nurse, patient aware of change. Patient in no distress, call dumont within reach and bed in lowest position. at bedside
--- NOTE | 2018-11-14 19:18 | NUR ---
report given and walking rounds complete. pt resting in bed and in no apparent distress. pt has cont. bladder irrigation. pt at bedside.
[2018-11-14] MEDS ORDERED: ONDANSETRON HCL INJ 2MG/ML 2ML 2 MG/ML VIAL ONE (19:50)
[2018-11-14] MEDS ORDERED: SEVOFLURANE INHAL SOLN 250 ML PEN BTL ONE (19:50)
[2018-11-14] MEDS ORDERED: PROPOFOL IV EMULSION 10 MG/ML 20 ML VIAL ONE (19:50)
[2018-11-14] MEDS ORDERED: LIDOCAINE HCL 2% LOCAL INJ 5 ML SDV VIAL INJ ONE (19:50)
[2018-11-14] MEDS ORDERED: KETOROLAC TROMETHAMINE 30 MG/ML VIAL ONE (19:50)
[2018-11-14] MEDS ORDERED: DEXAMETHASONE SOD PHOS INJ 4 MG/ML VIAL ONE (19:50)
[2018-11-15] VITALS (8 sets, daily range): BP systolic 88–114; BP diastolic 54–61
--- NOTE | 2018-11-15 07:12 | NUR ---
report given and walking rounds complete.
--- NOTE | 2018-11-15 07:20 | NUR ---
patient resting in bed , AAOx3, on Continuous bladder irrigation still olson like liquid output, Denies any pain or SOB , NO DISTRESS NOTED, Call light in reach
[2018-11-15] MEDS: SAW PALMETTO FRUIT PO SCH ×2 (08:13→17:00)
[2018-11-15] MEDS: FERROUS SULFATE 325 MG TAB PO SCH (08:13)
[2018-11-15] MEDS: LACTOBACILLUS ACIDOPHILUS CAPSULE PO SCH (08:13)
[2018-11-15] MEDS: TAMSULOSIN HCL 0.4 MG CAP PO SCH ×2 (08:13→17:05)
[2018-11-15] MEDS: OYST-CAL-D 500MG TABLET PO SCH (08:13)
[2018-11-15] MEDS: CALCIUM PHOSPHATE PO SCH (08:13)
[2018-11-15] MEDS: CIPROFLOXACIN 500 MG TAB PO SCH ×2 (08:13→17:05)
[2018-11-15] MEDS: ZINC SULFATE 50 MG CAP PO SCH (08:14)
[2018-11-15] MEDS: FINASTERIDE 5 MG TAB PO SCH (08:14)
[2018-11-15] MEDS ORDERED: CALCIUM CITRATE PO SCH (09:00)
[2018-11-15] MEDS ORDERED: IRON PO SCH (09:00)
[2018-11-15] MEDS ORDERED: NON-FORMULARY MEDICATION (Zinc Gluconate (Zinc) 50 MG) PO SCH (09:00)
--- NOTE | 2018-11-15 09:00 | NUR ---
Patient Discharge Status Code Form filed in front of chart
--- NOTE | 2018-11-15 09:10 | NUR ---
SOCIAL WORK INITIAL ASSESSMENT Lithographic Press Feeder to bedside to discuss plan of care with patient/family. CM/SW role and care transitions discussed. Anticipated discharge plan discussed along with duration of care. CM/SW discussed patients right to make decisions in care. CM/SW work hours given. Patient lives: IN HOUSE WITH FAMILY Admit/Transfer: VIA OP SURGE POA/Emergency contact: VALDEMAR SILVA Current/Previous Home Health: NONE PCP/Follow-up Care: DAVID Current/Previous DME: NONE Other Services: NONE Employment Status: RETIRED Areas of Concerns: NONE Referral Needs: NONE Education Needs: NONE IMM/GUIDRY given and signed (if applicable): IMM ON CHART AT ADMISSION, NEEDED GUIDRY SIGNED FILED AND GAVE COPY Goal for discharge: RETURN HOME NO NEEDS CM/SW left business card at the bedside with contact information. Name and number was also written on the patients whiteboard. Patient verbalized understanding of discussion. CM will follow-up with ongoing discharge and transition of care needs.
[2018-11-16] VITALS (7 sets, daily range): BP systolic 101–144; BP diastolic 57–72
--- NOTE | 2018-11-16 00:44 | NUR ---
CONTINUOUS BLADDER IRRIGATION STOPPED ORDERED BY MD, URINE NOTED BLOODY AND PATIENT DENIES PAIN. CALL LIGHT WITHIN EASY REACH, PATIENT INSTRUCTED TO CALL FOR ASSISTANCE NEEDED.
--- NOTE | 2018-11-16 05:06 | NUR ---
PATIENT IS ASLEEP, HE'S EASY TO AROUSE. NO DISTRESS OBSERVED, URINE BLOODY IN THE COLLECTING TUBE WITHOUT CLOTS.
--- NOTE | 2018-11-16 07:40 | NUR ---
Patient up in bed, Alert with no distress, denies any chest pain or SOB,able to urinate in toilet , patient aware to collect urine in urinal for series of urine, Call light in reach
[2018-11-16] MEDS: CALCIUM PHOSPHATE PO SCH (08:11)
[2018-11-16] MEDS: CIPROFLOXACIN 500 MG TAB PO SCH ×2 (08:11→17:30)
[2018-11-16] MEDS: TAMSULOSIN HCL 0.4 MG CAP PO SCH ×2 (08:12→17:30)
[2018-11-16] MEDS: FINASTERIDE 5 MG TAB PO SCH (08:12)
[2018-11-16] MEDS: OYST-CAL-D 500MG TABLET PO SCH (08:12)
[2018-11-16] MEDS: LACTOBACILLUS ACIDOPHILUS CAPSULE PO SCH (08:12)
[2018-11-16] MEDS: ZINC SULFATE 50 MG CAP PO SCH (08:12)
[2018-11-16] MEDS: FERROUS SULFATE 325 MG TAB PO SCH (08:12)
[2018-11-16] MEDS: SAW PALMETTO FRUIT PO SCH ×2 (08:12→17:00)
--- NOTE | 2018-11-16 13:18 | NUR ---
patient was c/o burning urination and decrease urine out put, bladder scan done showing more than 700cc of urine, paged Dr Morrison awaiting call back
--- NOTE | 2018-11-16 14:05 | NUR ---
As per new order from Dr Morrison 18fr ponce inserted , patient tolerated well, 420 cc of urine output noted
--- NOTE | 2018-11-16 16:02 | NUR ---
patient c/o feel pressure in urethra and urine was leaking, flushed it with 40 cc of water, blood clots came out, urine which is olson color flowing out
--- NOTE | 2018-11-16 20:26 | NUR ---
Patient is AxO x 4. Patient has no pain or distress. Call dumont within reach. Received report from day shift nurse.
--- NOTE | 2018-11-16 20:40 | NUR ---
Irrigation was done and many clots were removed during irrigation.
[2018-11-17] VITALS: BP 112/57
[2018-11-17 01:41] VITALS: BP 112/57
[2018-11-17 04:00] VITALS: BP 104/58
--- NOTE | 2018-11-17 06:15 | NUR ---
d/c ponce and changed the sheets on the bed. Call light within reach. Instructed patient to call for help.
--- NOTE | 2018-11-17 07:18 | NUR ---
REPORT WAS GIVEN TO ONCOMING NURSE. PATIENT WAS SITTING IN THE BED. NO PAIN OR DISTRESS. CALL PENALOZA WITHIN REACH.
[2018-11-17 07:28] VITALS: BP 112/57
[2018-11-17 08:10] VITALS: BP 112/57
[2018-11-17] MEDS: TAMSULOSIN HCL 0.4 MG CAP PO SCH (08:54)
[2018-11-17] MEDS: CIPROFLOXACIN 500 MG TAB PO SCH (08:54)
[2018-11-17] MEDS: CALCIUM PHOSPHATE PO SCH (08:54)
[2018-11-17] MEDS: OYST-CAL-D 500MG TABLET PO SCH (08:54)
[2018-11-17] MEDS: FERROUS SULFATE 325 MG TAB PO SCH (08:54)
[2018-11-17] MEDS: ZINC SULFATE 50 MG CAP PO SCH (08:55)
[2018-11-17] MEDS: SAW PALMETTO FRUIT PO SCH (08:55)
[2018-11-17] MEDS: LACTOBACILLUS ACIDOPHILUS CAPSULE PO SCH (08:55)
[2018-11-17] MEDS: FINASTERIDE 5 MG TAB PO SCH (08:55)
--- NOTE | 2018-11-17 09:34 | NUR ---
patient voided 100cc of dark red blood, medium size clot noted. Denies pain upon voiding. Bladder scan done post void 31cc noted.
[2018-11-17 11:17] VITALS: BP 122/64
[2018-11-17] MEDS ORDERED: PNEUMOCOCCAL VACCINE POLYVALENT 23 MCG/0.5 ML VIAL IM ONE (11:30)
--- NOTE | 2018-11-17 12:00 | NUR ---
250ml of dark red clear urine noted. Bladder scan done. No residual noted. No clots noted. Denies pain upon voiding
--- NOTE | 2018-11-17 13:25 | NUR ---
aware of patients status. Patient to be discharged today and follow up in 2 weeks
[2018-11-17] MEDS ORDERED: CIPRO500 MG PO (13:30)
--- NOTE | 2018-11-17 14:45 | NUR ---
Right hand IV discontinued. No signs of infiltration noted. 2x2 gauze and tape placed. Taken via wheelchair to personal car. AAOX4 to time, person,place, situation. Respirations even and unlabored. Discharge instructions, rx, and all personal belongings taken with patient.
== END 2018-11-17 14:45 | disposition home or self-care (01) ==
LOC: OR 05:29 → PACU V 08:35 → IMCU 10:09
PROVIDERS: ADMIT Urology; ATTEND Urology
DX: N32.0 Bladder-neck obstruction (principal); N40.1 Benign prostatic hyperplasia with lower urinary tract symptoms; N13.8 Other obstructive and reflux uropathy; Z23 Encounter for immunization
CPT/HCPCS: 36415 ×2; 52630; 71046; 80048; 85025 ×2; 88305; 90732; 93005; G0378 ×4; J0696; J1100; J1885; J2001; J2250; J2270; J2405; J2704; G0009

== ENCOUNTER → 2020-04-26 | Outpatient (CLI) | payer MEDICARE ==
[~2020-04-26] MED LIST changes: +CIPRO500 MG PO
--- NOTE | 2020-04-26 14:23 | Diagnostic Imaging Report ---
Exam: Lumbar spine MRI without IV contrast History: Sciatica low back and leg pain. Pain across both hips and down both legs. Comparison studies: None. Technique: Sagittal, axial coronal T2, sagittal T1, sagittal STIR, axial oblique proton density and axial T2 FS.. Intravenous contrast: None Findings: Number of lumbar vertebral bodies: 5. Alignment: Normal lumbar lordosis. Mild S-shaped curvature with mild thoracic dextrocurvature and lower thoracic levocurvature. Soft tissues: No T2 hyperintense inflammatory changes. Paraspinal muscles: No signal abnormalities. Well-preserved. No atrophic changes Lower thoracic cord: Normal in signal and morphology. The tip of the conus is at T12-L1. Cauda equina: Focal crowding of the cauda equina nerve roots at L3-L4 due to severe canal stenosis as described below. Vertebrae: No compression fracture, infection or neoplasm. Degenerative changes: Mildly degenerated disc with loss of T2 disc signal from the partially imaged T10 level to S1. Multiple anterior marginal osteophytes are present in the partially imaged thoracic spine and small small anterior disc bulges are present from T12 to L5. L1-L2: Patent canal and foramina. L2-L3: Symmetric disc bulge, thickened ligamentum flavum and facet arthrosis result in mild canal stenosis. Patent neural foramina appear L3-L4: Symmetric disc bulge, thickened ligamentum flavum and bilateral facet arthrosis result in severe canal stenosis and moderate bilateral foraminal stenosis. L4-L5: Prior laminotomy changes on the right. Disc bulge with right foraminal disc osteophyte complex and thickened ligamentum flavum on the left result in mild canal stenosis and moderate left and severe right foraminal stenosis with compression of the right L5 nerve root. L5-S1: Disc bulge and mild facet arthrosis result in moderate left and mild right foraminal stenosis. No significant canal stenosis. Included sacroiliac joints: No joint effusion or marrow edema. IMPRESSION: 1. Mild multilevel disc degeneration. 2. Severe degenerative canal stenosis at L3-L4. 3. Degenerative foraminal stenosis, moderate bilaterally at L3-L4, severe right and moderate left at L4-L5 and moderate left at L5-S1. 4. Prior laminotomy on the right at L4-L5. Signed by: Dr. Pan Scott M.D. on 04/26/2020 2:20 PM
== END ==
LOC: MRI 12:16
PROVIDERS: ATTEND Internal Medicine
DX: M54.42 Lumbago with sciatica, left side (principal); M54.41 Lumbago with sciatica, right side
CPT/HCPCS: 72148

== ENCOUNTER → 2021-06-13 | Day surgery (SDC) | payer MEDICARE ==
[2021-06-10 10:12] LABS: BASOPHILS # (AUTO) 0.1 (0.0-0.1); BASOPHILS % 0.8 % (0.0-1.0); EOSINOPHILS # (AUTO) 0.1 (0.0-0.4); EOSINOPHILS % 0.9 % (0.0-6.0); HEMATOCRIT 51.9 % (38.2-49.6); HEMOGLOBIN 17.3 g/dL (14.0-18.0); LYMPHOCYTES # (AUTO) 1.4 (1.0-3.2); LYMPHOCYTES % 21.8 % (18.0-39.1); MEAN CORPUSCULAR HEMOGLOBIN 32.4 pg (28-32); MEAN CORPUSCULAR HGB CONC 33.3 g/dL (31-35); MEAN CORPUSCULAR VOLUME 97.2 fL (81-99); MONOCYTES # (AUTO) 0.6 (0.2-0.8); MONOCYTES % 9.8 % (4.4-11.3); NEUTROPHILS # (AUTO) 4.3 (2.1-6.9); NEUTROPHILS % 66.4 % (38.7-80.0); PLATELET COUNT 167 x10e3/uL (140-360); RED BLOOD COUNT 5.34 x10e6/uL (4.3-5.7); RED CELL DISTRIBUTION WIDTH 13.6 % (11.7-14.4)
[~2021-06-13] MED LIST changes: +CURCUMIN PO; +FISH OIL 1,0001 EAC2 PO; +GLUCAGON FOR INJ 1 MG VIAL ONE; +HYOSCYAMINE SULFATE 0.5 MG/ML INJ ONE; +LIDOCAINE HCL 2% LOCAL INJ 5 ML SDV VIAL INJ ONE; +PRESERVISION A1 EACH PO; +PROPOFOL IV EMULSION 10 MG/ML 20 ML VIAL ONE; -SAW PALMETTO450 MG PEG; +SAW PALMETTO450 MG PO; +TUMERIC PO; +VITAMIN D325 MCG PO; +potassium citrate PO
[2021-06-13 09:55] VITALS: BP 147/93
== END | disposition home or self-care (01) ==
LOC: OR 06:25
PROVIDERS: ATTEND Internal Medicine Gastroenterology
DX: Z12.11 Encounter for screening for malignant neoplasm of colon (principal); D12.0 Benign neoplasm of cecum; D12.2 Benign neoplasm of ascending colon; D12.3 Benign neoplasm of transverse colon; D12.4 Benign neoplasm of descending colon; D12.5 Benign neoplasm of sigmoid colon; K64.8 Other hemorrhoids; M54.9 Dorsalgia, unspecified; J45.909 Unspecified asthma, uncomplicated; Z88.2 Allergy status to sulfonamides; Z01.810 Encounter for preprocedural cardiovascular examination; Z01.812 Encounter for preprocedural laboratory examination; Z20.822 Contact with and (suspected) exposure to COVID-19; Z80.0 Family history of malignant neoplasm of digestive organs
CPT/HCPCS: 36415; 45380; 45384; 45385; 85025; 93005; J1610; J1980; J2001; J2704; U0002

== ENCOUNTER → 2021-12-30 | Outpatient (CLI) | payer MEDICARE ==
[~2021-12-30] MED LIST changes: -GLUCAGON FOR INJ 1 MG VIAL ONE; -HYOSCYAMINE SULFATE 0.5 MG/ML INJ ONE; -LIDOCAINE HCL 2% LOCAL INJ 5 ML SDV VIAL INJ ONE; -PROPOFOL IV EMULSION 10 MG/ML 20 ML VIAL ONE
== END ==
LOC: MRI 12:18
PROVIDERS: ATTEND Internal Medicine
DX: M54.6 Pain in thoracic spine (principal)
CPT/HCPCS: 72146

== ENCOUNTER → 2022-10-13 | Outpatient (CLI) | payer MEDICARE | LOC: MRI 07:14 | PROVIDERS: ATTEND Internal Medicine | DX: M54.31 Sciatica, right side (principal) | CPT/HCPCS: 72148 ==

== ENCOUNTER → 2024-02-05 | Day surgery (SDC) | payer MEDICARE ==
[2024-02-04 08:17] LABS: BASOPHILS % 0.6 % (0.0-1.0); EOSINOPHILS # (AUTO) 0.1 (0.0-0.4); EOSINOPHILS % 1.5 % (0.0-6.0); HEMATOCRIT 46.8 % (38.2-49.6); HEMOGLOBIN 15.9 g/dL (14.0-18.0); LYMPHOCYTES # (AUTO) 1.1 (1.0-3.2); LYMPHOCYTES % 16.8 % (18.0-39.1); MEAN CORPUSCULAR VOLUME 91.2 fL (81-99); MONOCYTES # (AUTO) 0.6 (0.2-0.8); NEUTROPHILS # (AUTO) 4.8 (2.1-6.9); NEUTROPHILS % 71.9 % (38.7-80.0); PLATELET COUNT 185 x10e3/uL (140-360); RED BLOOD COUNT 5.13 x10e6/uL (4.3-5.7); RED CELL DISTRIBUTION WIDTH 14.4 % (11.7-14.4); WHITE BLOOD COUNT 6.65 x10e3/uL (4.8-10.8)
[~2024-02-05] MED LIST changes: +AMBIEN10 MG PO; +DEXMEDETOMIDINE HCL 200 MCG/2 ML VIAL ONE; +ESMOLOL HCL 100MG/10ML 10 MG/ML VIAL ONE; +GLUCAGON FOR INJ 1 MG VIAL ONE; +HYOSCYAMINE SULFATE 0.5 MG/ML INJ ONE; +LIDOCAINE HCL 2% LOCAL INJ 5 ML SDV VIAL INJ ONE; +PROPOFOL IV EMULSION 10 MG/ML 20 ML VIAL ONE
[2024-02-05] MEDS: LACTATED RINGER'S 1,000 ML ONE (10:43)
[2024-02-05 12:40] VITALS: BP 122/78; PULSE 74; RESP 12; O2SAT 96
== END | disposition home or self-care (01) ==
LOC: OR 10:30
PROVIDERS: ATTEND Internal Medicine Gastroenterology
DX: Z12.11 Encounter for screening for malignant neoplasm of colon (principal); D12.0 Benign neoplasm of cecum; D12.2 Benign neoplasm of ascending colon; D12.3 Benign neoplasm of transverse colon; D12.4 Benign neoplasm of descending colon; K64.8 Other hemorrhoids; N20.0 Calculus of kidney; Z88.2 Allergy status to sulfonamides; Z01.810 Encounter for preprocedural cardiovascular examination; Z01.812 Encounter for preprocedural laboratory examination; Z79.899 Other long term (current) drug therapy; Z80.0 Family history of malignant neoplasm of digestive organs
CPT/HCPCS: 36415; 45380; 45385; 85025; 93005; J1610; J1980; J2001; J2704; J7121; 45384